=== PATIENT | male | born 1980 | race Caucasian/White ===

== ENCOUNTER 2021-04-22 10:54 | Emergency (ER) | payer OTHER ==
[2021-04-22 11:39] VITALS: BP 137/86; PULSE 89; TEMP 98.6; BMI 34.4
[2021-04-22 14:47] LABS: SYPHILIS W/ RPR CONF NON-REACTIVE (NONREACTIVE)
[2021-04-22 15:16] LABS: HIV INTERPRETATION NEGATIVE (NEGATIVE)
== END 2021-04-22 13:29 | disposition home or self-care (01) ==
LOC: JERFT 10:54
DX: S61.031A Puncture wound without foreign body of right thumb without damage to nail, initial encounter (principal); W26.8XXA Contact with other sharp object(s), not elsewhere classified, initial encounter
CPT/HCPCS: 36415; 86704; 86780; 86803; 87340; 87389; 87517; 99283-25

== ENCOUNTER 2022-05-11 10:20 | Emergency (ER) | payer OTHER ==
[2022-05-11 10:50] VITALS: BP 130/89; PULSE 77; RESP 18; TEMP 98.1; BMI 33.0
== END 2022-05-11 11:34 | disposition home or self-care (01) ==
LOC: JERFT 10:20 → JER 10:20 → JERFT 11:34
DX: H10.9 Unspecified conjunctivitis (principal)
CPT/HCPCS: 99283-25